=== PATIENT | female | born 1945 | race Caucasian/White ===

== ENCOUNTER 2021-01-05 07:13 | Day surgery (SDC) | payer MEDICARE, BC ==
[~2021-01-05 07:13] MED LIST: Acetaminophen 325 MG Tab PO SCH; Lactated Ringers 1,000 ML IV SCH; Lidocaine 1%/Sod Bicarbonate in NS 8.4% 1 ML Syringe IDERM PRN; Pregabalin 25 MG Cap PO SCH; Sodium Chloride 0.9% 10 ML Syringe FLUSH PRN; oxyCODONE ER 10 MG TAB.ER PO SCH
[2021-01-05] MEDS ORDERED: Bupivacaine 0.25% 10 ML SDV ONE (08:05)
--- NOTE | 2021-01-05 08:07 | PCM.PREANE ---
Preanesthetic Assessment - Procedure Proposed Procedure: Left total hip arthroplasty - Anesthesia/Transfusion/Family Hx Anesthesia History: Prior Anesthesia Without Reaction Family History of Anesthesia Reaction: No Transfusion History: No Prior Transfusion(s) - Review of Systems General: No Symptoms Pulmonary: No Symptoms Cardiovascular: Dyspnea on Exertion Gastrointestinal: No Symptoms Neurological: Numbness (hands and feet) Other: Reports: None - Physical Assessment NPO Status Date: 01/04/21 NPO Status Time: 00:00 Height: 1.6 m Weight: 76.7 kg ASA Class: 3 Mental Status: Alert & Oriented x3 Airway Class: Mallampati = 2 Dentition: Reports: [place](s) Thyro-Mental Finger Breadths: 2 Mouth Opening Finger Breadths: 2 ROM/Head Extension: Limited/Partial Lungs: Clear to Auscultation, Normal Respiratory Effort Cardiovascular: Regular Rate, Regular Rhythm - Imaging/EKG Impressions: EKG SR Rate 68 - Allergies Allergies/Adverse Reactions: Allergies Allergy/AdvReac Type Severity Reaction Status Date / Time No Known Allergies Allergy Verified 01/04/21 12:34 - Anesthesia Plan Pre-Op Medication Ordered: Beta Wyatt Beta Wyatt: Metoprolol Med Last Dose Date: 01/05/21 Med Last Dose Time: 05:30 - Acknowledgements Anesthesia Type Planned: Spinal Pt an Appropriate Candidate for the Planned Anesthesia: Yes Alternatives and Risks of Anesthesia Discussed w Pt/Guardian: Yes Pt/Guardian Understands and Agrees with Anesthesia Plan: Yes PreAnesthesia Questionnaire HEENT History: Reports: Impaired Vision, Other (See Below) Other HEENT History: blurred vision, retinal embolus, glasses Cardiovascular History: Reports: High Cholesterol, Hypertension Respiratory History: Reports: None Gastrointestinal History: Reports: Diverticulosis, Irritable Bowel Syndrome, Other (See Below) Other Gastrointestinal History: dysphasia Genitourinary History: Reports: Other (See Below) Other Genitourinary History: stress urinary incontinence [employer] MACHINE History: Reports: Other (See Below) Other OB/BYN History: fibrocystic breast disease Musculoskeletal History: Reports: Osteoarthritis, Other (See Below) Other Musculoskeletal History: polyarthritis, sciatica, costochondral pain Neurological History: Reports: Other (See Below) Other Neuro History: neuropathy, restless leg syndrome, compression fracture, left gluteal tendinopathy, spinal stenosis, ulnar nerve neuropathy Psychiatric History: Reports: None Endocrine/Metabolic History: Reports: Hyperparathyroidism Hematologic History: Reports: None Immunologic History: Reports: None Oncologic (Cancer) History: Reports: Breast Dermatologic History: Reports: None - Past Surgical History Head Surgeries/Procedures: Reports: None HEENT Surgical History: Reports: Cataract Surgery Cardiovascular Surgical History: Reports: None Respiratory Surgical History: Reports: None GI Surgical History: Reports: Appendectomy, Colonoscopy, EGD Female Surgical History: Reports: D&C, Other (See Below) Other Female Surgeries/Procedures: exploratory laparoscopy Endocrine Surgical History: Reports: None Neurological Surgical History: Reports: None Musculoskeletal Surgical History: Reports: None Oncologic Surgical History: Reports: Lumpectomy Dermatological Surgical History: Reports: None - SUBSTANCE USE Tobacco Use Status *Q: Never Tobacco User Tobacco Use Within Last Twelve Months: No Second Hand Smoke Exposure: No Days Per Week of Alcohol Use: 0 Number of Drinks Per Day: 0 Total Drinks Per Week: 0 Recreational Drug Use History: No - HOME MEDS Home Medications: Home Meds Acetaminophen [Tylenol Extra Strength] 1,000 mg PO TID 01/04/21 [History] Anastrozole [Arimidex] 1 mg PO DAILY 01/04/21 [History] Aspirin 81 mg PO DAILY 01/04/21 [History] Cholecalciferol (Vitamin D3) [Vitamin D3] 5,000 unit PO DAILY 01/04/21 [History] DULoxetine [Cymbalta] 60 mg PO DAILY 01/04/21 [History] Denosumab [Prolia] 60 mg SQ ASDIRECTED 01/04/21 [History] Gabapentin [Gralise] 1,200 mg PO BEDTIME 01/04/21 [History] Gabapentin [Neurontin] 600 mg PO BID 01/04/21 [History] Losartan [Cozaar] 50 mg PO BEDTIME 01/04/21 [History] Metoprolol Succinate 25 mg PO DAILY 01/04/21 [History] Multivitamin 1 tab PO DAILY 01/04/21 [History] Pantoprazole Sodium [Protonix] 40 mg PO DAILY 01/04/21 [History] Rosuvastatin [Crestor] 5 mg PO DAILY 01/04/21 [History] Triamterene/Hydrochlorothiazid [Triamterene-HCTZ 37.5-25 MG] 1 cap PO DAILY 01/04/21 [History] Vit C/E/Zn/Coppr/Lutein/Zeaxan [Preservision Areds 2 Softgel] 1 cap PO DAILY 01/04/21 [History] Cyclobenzaprine [Flexeril] 5 mg PO BID PRN #15 tab 01/05/21 [Rx] Rivaroxaban [Xarelto] 10 mg PO DAILY #35 tab 01/05/21 [Rx] oxyCODONE 5 - 10 mg PO Q4H PRN #40 tab 01/05/21 [Rx] - CURRENT (IN HOUSE) MEDS Current Meds: Current Medications Acetaminophen (Acetaminophen 325 Mg Tab) 975 mg PO ONETIME HECTOR Stop: 01/05/21 16:00 Last Admin: 01/05/21 07:43 Dose: 975 mg Documented by: Morphine Sulfate 8 mg/Epinephrine HCl 0.3 mg/Cefuroxime Sodium 750 mg/Ketorolac Tromethamine 30 mg/Sodium Chloride 7.9 ml 0 mg .XX ASDIRECTED PRN PRN Reason: Pain Stop: 01/05/21 18:00 Lactated Ringer's (Ringers, Lactated) 1,000 mls @ 125 mls/hr IV ASDIRECTED HECTOR Stop: 01/05/21 23:00 Lidocaine/Sodium Bicarbonate (Lidocaine 1%/Sod Bicarbonate In Ns 8.4% 1 Ml Syringe) 0.25 ml IDERM ONETIME PRN PRN Reason: Prior to IV Start Stop: 01/05/21 18:00 Oxycodone HCl (Oxycodone Er 10 Mg Tab.Er) 10 mg PO ONETIME HECTOR Stop: 01/05/21 16:00 Last Admin: 01/05/21 07:43 Dose: 10 mg Documented by: Pregabalin (Pregabalin 25 Mg Cap) 50 mg PO ONETIME HECTOR Stop: 01/05/21 16:00 Last Admin: 01/05/21 07:44 Dose: 50 mg Documented by: Sodium Chloride (Sodium Chloride 0.9% 10 Ml Syringe) 10 ml FLUSH ASDIRECTED PRN PRN Reason: Keep Vein Open Stop: 01/05/21 18:00
[2021-01-05] MEDS ORDERED: Ondansetron 4 MG/2 ML SDV ONE (08:19)
[2021-01-05] MEDS ORDERED: fentaNYL 100 MCG/2 ML SDV ONE (08:20)
[2021-01-05] MEDS ORDERED: Propofol 200 MG/20 ML SDV ONE ×3 (08:20→10:02)
[2021-01-05] MEDS ORDERED: ceFAZolin 1 GM Vial ONE (08:20)
[2021-01-05] MEDS ORDERED: Lidocaine 1% 4 ML ONE (08:20)
[2021-01-05] MEDS ORDERED: Lactated Ringers 1,000 ML ONE (09:11)
[2021-01-05] MEDS ORDERED: ePHEDrine 50 MG/ML SDV ONE (09:23)
[2021-01-05] MEDS: Vancomycin 1 GM SDV ONE ×2 (09:33→10:16)
[2021-01-05] MEDS: Morphine 8 MG, EPINEPHrine 0.3 MG, Cefuroxime 750 MG, Ketorolac 30 MG, Sodium Chloride ... PRN ×10 (09:34→10:14)
--- NOTE | 2021-01-05 10:52 | PCM.POSTAN ---
POST ANESTHESIA ASSESSMENT - MENTAL STATUS Mental Status: Somnolent - VITAL SIGNS Vital Signs: Last Vital Signs Temp 36.8 C 01/05/21 07:20 Pulse 71 01/05/21 07:20 Resp 16 01/05/21 07:20 BP 117/54 L 01/05/21 07:20 Pulse Ox 99 01/05/21 07:20 - RESPIRATORY Respiratory Status: Respiratory Rate WNL, Airway Patent, O2 Saturation Stable, Supplemental Oxygen - CARDIOVASCULAR CV Status: Pulse Rate WNL, Blood Pressure Stable - GASTROINTESTINAL GI Status: No Symptoms - PAIN Pain Score: 0 - POST OP HYDRATION Hydration Status: Adequate & Stable - OBSERVATIONS Free Text/Narrative:: NO ANESTHESIA COMPLICATIONS NOTED
--- NOTE | 2021-01-05 12:41 | CR ---
Pelvis and left hip: AP view of the pelvis was obtained as well as AP and frog-leg lateral views of the left hip. Disc space narrowing is seen within the lower lumbar spine with scoliosis. Joint space within the right hip is maintained. Left hip prosthesis is seen and components are aligned. Slight degenerative change is noted within the sacroiliac joints. Impression: 1. Recently placed left hip prosthesis. 2. Degenerative change as noted above. Diagnostic code #2
--- NOTE | 2021-01-05 14:10 | PCM48HPAN ---
Post Anesthesia Note - EVALUATION WITHIN 48HRS OF ANESTHETIC Vital Signs in Normal Range: Yes Patient Participated in Evaluation: Yes Respiratory Function Stable: Yes Airway Patent: Yes Cardiovascular Function Stable: Yes Hydration Status Stable: Yes Pain Control Satisfactory: Yes Nausea and Vomiting Control Satisfactory: Yes Mental Status Recovered: Yes Vital Signs: Last Vital Signs Temp 36.7 C 01/05/21 13:10 Pulse 72 01/05/21 13:10 Resp 16 01/05/21 13:10 BP 110/54 L 01/05/21 13:10 Pulse Ox 93 L 01/05/21 13:10
[2021-01-05] MEDS ORDERED: oxyCODONE 5 MG Tab PO ONE (15:30)
[2021-01-05] MEDS ORDERED: Cyclobenzaprine 10 MG Tab PO ONE (15:30)
--- NOTE | 2021-01-11 07:33 | PCM.OPNOTE ---
- General Post-Op/Procedure Note Date of Surgery/Procedure: 01/05/21 Operative Procedure(s): left total hip arthroplasty with scott monique lópez Pre Op Diagnosis: left hip osteoarthrosis Post-Op Diagnosis: Same Anesthesia Technique: Local, MAC, Spinal Primary Surgeon: Nash Dasilva Anesthesia Provider: [employer] Consultant: Gricelda [employer] Consultant: Sarah Sanchez EBL in mLs: 250 Complications: None Condition: Good Free Text/Narrative:: 54 cup 4 stem 28+o MDM
--- NOTE | 2021-01-15 22:41 | OR ---
DATE OF OPERATION: 01/05/2021 SURGEON: Nash Dasilva MD OPERATION PERFORMED: Left total hip arthroplasty, [employer]. PREOPERATIVE DIAGNOSIS: Left hip osteoarthrosis. POSTOPERATIVE DIAGNOSIS: Left hip osteoarthrosis. ANESTHESIA: Local MAC with spinal. ANESTHESIA PROVIDER: Chadwick Vivas CRNA. PAGEANT DIRECTOR: Gircelda Alfaro PA-C, and Sarah Sanchez LPN. ESTIMATED BLOOD LOSS: 250 mL. COMPLICATIONS: None. CONDITION: Stable. IMPLANT: 1. Vicky size 54 mm solid Tritanium II acetabular cup. 2. [place] size 4 Accolade II stem. 3. Vicky size 28 +0 MDM components. DESCRIPTION OF PROCEDURE: The patient was identified in the preoperative holding area. Proper site was marked and identified by the surgeon. The patient was taken back to the operating theater where after adequate anesthesia, the patient was placed in a right lateral decubitus position. Axillary roll was placed. The patient's gluteal fold was parallel to the floor. Pegs were then placed and well padded. The patient's left hip was then sterilely prepped and draped in the usual sterile fashion. OR time-out was performed. Patient received 2 g IV Ancef. At this time, three 4.0 Schanz pins were placed in the iliac crest 3 fingerbreadths posterior to the ASIS for the [employer] robotic array, which was then attached. A standard posterior incision was made, this was taken down to the IT band and gluteal fascia, which was incised along the incisional length. The patient had a previous abductor repair and was found to be intact with the sutures still intact and good healing. At this time, the bursa was resected. Short external rotators were identified and capsulectomy as well as takedown of the short external rotators was done from the level of the piriformis down to the lesser trochanter. Hip was then dislocated. Neck cut was completed and found to be adequate. Attention was turned to the acetabulum, anterior and posterior acetabular retractors were placed. Circumferential removal of the labrum was done at this time as well as the pulvinar. At this time, 15 points were obtained intra-articularly and then 15 more extra-articularly. I did ask for 5 more points in both intra and extra-articular. Anterior and posterior horns of the acetabulum were then also marked using the [employer] robotic plan. The patient was planned for a 54 mm cup. The 54 mm reamer was then brought in and 45 degrees of abduction and 20 degrees of anteversion. It was reamed and found to have an adequate solid ream. The 54 mm cup was then impacted in place and was found to be in proper position with solid fit. The MDM liner was impacted into place. Attention was turned to the femur. Box chisel was used out laterally. Starter awl was placed down the canal. Starting with a 0 broach, I was able to broach up to a size 4, which was found to be rotationally and vertically stable. A 28+ 0 MDM trial components were then trialed. The patient had adequate yarsani of leg lengths and was stable throughout range of motion with no signs of instability. Trial implants were then removed. The size 4 Accolade II stem was impacted into place, 28+ 0/42 MDM components were constructed on the back table. It was impacted onto the stem. Hip was then relocated. #5 Ethibond suture was used for closure of the short external rotators and capsule. Periarticular injection was completed. 1 L pulse lavage irrigation with Ancef was irrigated through the hip along with 400 mL IrriSept irrigation. Topical tranexamic acid and vancomycin power were applied. A #2 barbed suture was used for closure of the IT band and gluteal fascia. 2-0 Vicryl was used subcutaneously, and Prineo was used for skin closure. The patient tolerated the procedure well and was sent to PACU in stable condition. MMODAL /[id number]
== END 2021-01-05 15:35 | disposition home or self-care (01) ==
LOC: JD.SDS 07:13
PROVIDERS: ATTEND Orthopaedic Surgery
DX: M16.12 Unilateral primary osteoarthritis, left hip (principal); E78.5 Hyperlipidemia, unspecified; E21.3 Hyperparathyroidism, unspecified; I10 Essential (primary) hypertension; C50.911 Malignant neoplasm of unspecified site of right female breast; M06.4 Inflammatory polyarthropathy; M80.88XA Other osteoporosis with current pathological fracture, vertebra(e), initial encounter for fracture; G89.29 Other chronic pain; Z79.82 Long term (current) use of aspirin; Z90.49 Acquired absence of other specified parts of digestive tract; Z98.890 Other specified postprocedural states; Z79.899 Other long term (current) drug therapy
CPT/HCPCS: 27130; 36415; 73501; 86850; 86900; 86901; 97110; 97116; 97161; 97165; 97535; A9270; C1713; C1776; J0171; J0690; J0697; J1885; J2270; J2370; J2405; J2704; J3010; J3370; J7120; 01214; 99100; J3490